=== PATIENT | female | born 1960 | race Caucasian/White ===

== ENCOUNTER → 2023-06-24 13:56 | Outpatient (REF) | payer BC, SELFPAY ==
--- NOTE | 2023-06-24 14:03 | CA_ITS ---
Transthoracic Echocardiogram Patient (Last, First, Middle): Estela Yee, Gender: Female Date of : 1960 Age: 62 Procedure Date: 06/24/2023 Procedure Type: Transthoracic Echocardiogram Location: OP Height: 170.18 cm Weight: 99.79 kg BSA: 2.11 m2 Heart Rate: bpm BP: 112 / 72 mmHg Residential [employer] Se[employer] Technician: GRAY/ROMAINE Referring MD: Dieudonne Irizarry MD Hand Candy Dipper: Jakub Rhodes MD Symptoms: R00.2 PALPITATIONS Study Quality: Adequate ECG Rhythm: Sinus Conclusions: - 1. Normal LV ejection fraction of 60-65% with grade 1 diastolic dysfunction 2. Normal cardiac valvular Dopplers 3. No gross pericardial effusion Findings Left Ventricle Normal left ventricular size, thickness, and systolic function. The visually estimated ejection fraction is between 60-65%. Spectral Doppler is indicative of an impaired relaxation filling pattern. E/E prime ratio is <8, consistent with normal filling pressures. Peak GLS is -17.9%, borderline normal. Right Ventricle Normal right ventricular cavity size and systolic function. Atria Both atria are normal in size. There is no evidence of interatrial shunt. Aortic Valve Normal aortic valve structure and function. There is no aortic valve stenosis. There is no aortic valve regurgitation. Mitral Valve Normal mitral valve structure and function. There is trace mitral valve regurgitation. There is no mitral valve stenosis. Pulmonic Valve The pulmonic valve is likely normal. There is trace pulmonic valve regurgitation. Tricuspid Valve Likely normal tricuspid valve structure and function. Tricuspid regurgitation envelope is inadequate for calculation of right ventricular systolic pressure. Normal right atrial pressure. Great Vessels All visible segments of the aorta are normal in size. The pulmonary artery was not well visualized. There is no dilatation of the ascending aorta measuring 3.40 cm. Venous The inferior vena cava is normal in size and collapses greater than 50% with inspiration. Pericardium/Pleural There is no evidence of pericardial effusion. Prior Study Comparison No prior study available for comparison. Measurements 2D Linear Measurements IVSd: 1.03 0.6-0.9/0.6-1.0 cm LVIDd: 4.11 3.9-5.3/4.2-5.9 cm LVIDd Index: 1.95 2.4-3.2/2.2-3.1 cm/m2 LVIDs: 2.87 2.0-3.6 cm LVPWd: 0.88 0.7-1.1 cm LA Diam: 3.60 2.7-3.8/3.0-4.0 cm LAIDs Index: 1.71 1.5-2.3 cm/m2 LV Mass: 154.58 67-162/88-224 g LV Mass Index: 73.26 43-95/49-115 g/m2 LVOT Diam: 2.20 3.0+(-)1.3 cm 2D Systolic Function EF 4C: 66.10 >55% EF 2C: 61.60 >55% EF BiP: 64.60 >55% Mitral Valve MV Pk E: 0.57 MV PK A: 0.69 MV Decel Time: 119.00 E/A: 0.80 E'Lateral: 10.70 E'Medial: 6.85 E/E' Med: 8.30 E/E' Lat: 5.30 PHT: 35.00 MVA PHT: 6.29 Decel [place]: 4.76 Aortic Valve AoV Pk Gregor: 1.26 AoV Mn Gregor: 0.91 AoV VTI: 0.29 AoV Pk Grad: 6.00 Aov Mn Grad: 4.00 SACHI Cont.VTI: 3.11 LVOT LVOT Pk Gregor: 1.23 LVOT Mn Gregor: 0.79 LVOT VTI: 0.24 LVOT Pk Grad: 6.00 LVOT Mn Grad: 3.00 LVOT Diam: 2.20 LVOT Area: 3.80 Diastolic Function MV Pk E: 0.57 MV Pk A: 0.69 E/A: 0.80 E'Medial: 6.85 E/E' Med: 8.30 E' Laterial: 10.70 E/E' Lat: 5.30 Tricuspid Valve RA Press: 3.00 Great Vessels Aorta Sinus of Valsalva: 2.87 2.0-3.[address] [place]: 2.72 1.7-3.4 cm Ao Asc: 3.40 2.1-3.4 cm Ao Arch: 2.90 Updated in Other Vendor System with Status of Final Jakub Rhodes MD electronically signed on 06/24/2023 5:06:57 PM with status of Final
== END ==
LOC: HO.CARD 13:56
PROVIDERS: PCP Pediatrics; Visit Provider Pediatrics
DX: R00.2 Palpitations (principal)
CPT/HCPCS: 93306; 93356

== ENCOUNTER → 2023-06-24 14:03 | Outpatient (BNV) | payer BC, SELFPAY | PROVIDERS: PCP Pediatrics; Visit Provider Internal Medicine Cardiovascular Disease | DX: R00.2 Palpitations (principal) | CPT/HCPCS: 93306 ==